=== PATIENT | male | born 1970 | race Caucasian/White ===

== ENCOUNTER 2018-03-30 22:23 | Inpatient (IN) | payer BC ==
[2018-03-30] MEDS ORDERED: ADENOSINE 3 MG/ML 2 ML VIAL IVP STA (23:03)
[2018-03-30 23:29] LABS: Basophils % (A) 1 %; Eosinophils # (A) 0.2 k/uL (0-0.7); Eosinophils % (A) 4 %; HCT 43.7 % (39.0-53.0); HGB 15.3 gm/dL (13.0-17.5); Lymphocytes # (A) 2.6 k/uL (1.0-4.8); Lymphocytes % (A) 42 %; MCH 31.4 pg (25.0-35.0); MCV 89.6 fL (80.0-100.0); Mean Platelet Volume 6.7; Monocytes # (A) 0.4 k/uL (0-1.0); Monocytes % (A) 7 %; Neutrophils # (A) 2.7 k/uL (1.3-7.7); Neutrophils % (A) 43 %; Platelet Count 254 k/uL (150-450); RBC 4.88 m/uL (4.30-5.90); RDW 12.6 % (11.5-15.5); WBC 6.3 k/uL (3.8-10.6)
[2018-03-30 23:36] LABS: Partial Thromboplastin Time 22.3 sec (22.0-30.0); Prothrombin Time 10.6 sec (9.0-12.0)
[2018-03-30 23:42] LABS: Albumin 4.6 g/dL (3.5-5.0); Calcium 9.7 mg/dL (8.4-10.2); Magnesium 2.1 mg/dL (1.6-2.3); Total Bilirubin 0.8 mg/dL (0.2-1.3); Total Protein 7.2 g/dL (6.3-8.2)
[2018-03-31 00:01] LABS: Creatine Kinase MB 1.4 ng/mL (0.0-2.4); Troponin I 0.013 ng/mL (0.000-0.034)
[2018-03-31] MEDS ORDERED: DILTIAZEM DRIP BOLUS FROM BAG 1 MG SOLN IV ONE ×2 (00:02→01:46)
--- NOTE | 2018-03-31 00:08 | XR ---
EXAM: XR Chest, 1 View CLINICAL HISTORY: Reason: dysrhythmia TECHNIQUE: Frontal view of the chest. COMPARISON: No relevant prior studies available. FINDINGS: Lungs: Unremarkable. No consolidation. Pleural space: Unremarkable. No pneumothorax. Heart: Unremarkable. No cardiomegaly. Mediastinum: Unremarkable. Bones/joints: Unremarkable. IMPRESSION: Normal chest x-ray.
[2018-03-31] MEDS: DILTIAZEM 125 MG in SODIUM CHLORIDE 0.9% 100 ML IV SCH ×2 (00:22→21:05)
[2018-03-31] MEDS ORDERED: NITROGLYCERIN SL TABS 0.4 MG TAB SUBLINGUAL PRN (02:08)
[2018-03-31] MEDS: SODIUM CHLORIDE 0.9% 1,000 ML IV SCH ×3 (02:12→22:30)
--- NOTE | 2018-03-31 02:13 | ED ---
Arrhythmia/Palpitations HPI - General Chief Complaint: Arrhythmia/Palpitations Stated Complaint: fast heart rate Time Seen by Provider: 03/30/18 22:53 Source: patient Mode of arrival: ambulatory Limitations: no limitations - History of Present Illness Initial Comments: This patient is a 47-year-old man with no cardiac history, who presents to be evaluated for racing and irregular heartbeat. 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 He states that he had not actually exerted himself at all. He did have a little bit of lightheadedness intermittently. The patient states that he is otherwise felt well. Patient denies chest pain, dyspnea, nausea or vomiting. MD Complaint: rapid heart beat, irregular heart beat Onset/Timin -: hour(s) Context: occurred during rest Associated Symptoms: near-syncope Treatments Prior to Arrival: vagal maneuvers - Related Data Home Medications Medication Instructions Recorded Confirmed Cholecalciferol [Vitamin D3] 1,000 unit PO DAILY 03/30/18 03/30/18 Allergies Allergy/AdvReac Type Severity Reaction Status Date / Time No Known Allergies Allergy Verified 03/30/18 22:58 Review of Systems ROS Statement: Those systems with pertinent positive or pertinent negative responses have been documented in the HPI. ROS Other: All systems not noted in ROS Statement are negative. Constitutional: Denies: fever, chills, weakness Respiratory: Denies: cough, dyspnea Cardiovascular: Reports: palpitations. Denies: chest pain, dyspnea on exertion , edema Gastrointestinal: Denies: abdominal pain, nausea, vomiting, diarrhea Genitourinary: Denies: dysuria Musculoskeletal: Denies: back pain Skin: Denies: rash Neurological: Denies: headache, weakness, numbness Past Medical History Past Medical History: No Reported History History of Any Multi-Drug Resistant Organisms: None Reported Past Surgical History: Hernia Repair Past Psychological History: No Psychological Hx Reported Smoking Status: Never smoker Past Alcohol Use History: Occasional Past Drug Use History: None Reported General Exam Limitations: no limitations General appearance: alert, in no apparent distress Head exam: Present: atraumatic, normocephalic Eye exam: Present: normal appearance. Absent: scleral icterus, conjunctival injection ENT exam: Present: normal oropharynx Neck exam: Present: normal inspection, full ROM Respiratory exam: Present: normal lung sounds bilaterally. Absent: respiratory distress, wheezes, rales, rhonchi, stridor Cardiovascular Exam: Present: tachycardia (Rate approximately 160 bpm), normal heart sounds. Absent: systolic murmur, diastolic murmur, rubs, gallop GI/Abdominal exam: Present: soft. Absent: distended, tenderness, guarding, rebound, rigid, mass Extremities exam: Present: normal inspection. Absent: pedal edema, calf tenderness Back exam: Present: normal inspection. Absent: CVA tenderness (R), CVA tenderness (L) Neurological exam: Present: alert Skin exam: Present: warm, dry, intact, normal color. Absent: rash Course Vital Signs 03/30/18 03/30/18 03/31/18 22:38 23:02 00:43 Temperature 97.9 F Pulse Rate 89 110 H Pulse Rate [ 178 H Senior Scrum Master ] Respiratory 18 20 Rate Blood Pressure 106/73 100/68 Blood Pressure [Left Arm] O2 Sat by Pulse 99 98 Oximetry 03/31/18 03/31/18 03/31/18 01:30 02:31 02:47 Temperature 97.7 F Pulse Rate 105 H 84 Pulse Rate [ 85 Senior Scrum Master ] Respiratory 18 20 20 Rate Blood Pressure 106/78 96/54 Blood Pressure 106/62 [Left Arm] O2 Sat by Pulse 98 100 Oximetry 03/31/18 03:20 Temperature 97.7 F Pulse Rate 84 Pulse Rate [ Senior Scrum Master ] Respiratory 20 Rate Blood Pressure 106/62 Blood Pressure [Left Arm] O2 Sat by Pulse 97 Oximetry EKG Findings - EKG Comments: EKG Findings:: SVT with rate approx 170s - EKG Results: EKG: interpreted by GEOFF, normal axis, normal QRS Medical Decision Making - Medical Decision Making Patient's 47-year-old man with a narrow complex tachycardia suspected to be SVT. We did attempt vagal maneuvers/ Valsalva which did not slow the patient's rate. Patient is given two rounds of adenosine , the first of which briefly slowed the rate before resuming the tachycardia approximately 170s. When this did not control the patient's rate Cardizem started which did bring the rate down to approximately 100 there were still some breakthroughs into the 160s however so patient be admitted for she'll cardiac enzymes and also cardiology consultation. - Lab Data Result diagrams: 03/31/18 04:49 03/31/18 04:49 Lab Results 03/30/18 03/30/18 03/30/18 Range/Units 22:58 22:58 22:58 WBC 6.3 (3.8-10.6) k/uL RBC 4.88 (4.30-5.90) m/uL Hgb 15.3 (13.0-17.5) gm/dL Hct 43.7 (39.0-53.0) % MCV 89.6 (80.0-100.0) fL MCH 31.4 (25.0-35.0) pg MCHC 35.0 (31.0-37.0) g/dL RDW 12.6 (11.5-15.5) % Plt Count 254 (150-450) k/uL Neutrophils % 43 % Lymphocytes % 42 % Monocytes % 7 % Eosinophils % 4 % Basophils % 1 % Neutrophils # 2.7 (1.3-7.7) k/uL Lymphocytes # 2.6 (1.0-4.8) k/uL Monocytes # 0.4 (0-1.0) k/uL Eosinophils # 0.2 (0-0.7) k/uL Basophils # 0.0 (0-0.2) k/uL PT (9.0-12.0) sec INR (<1.2) APTT (22.0-30.0) sec Sodium 143 (137-145) mmol/L Potassium 4.0 (3.5-5.1) mmol/L Chloride 107 (98-107) mmol/L Carbon Dioxide 27 (22-30) mmol/L Anion Gap 9 mmol/L BUN 20 (9-20) mg/dL Creatinine 1.57 H (0.66-1.25) mg/dL Est GFR (CKD-EPI)AfAm 60 (>60 ml/min/1.73 sqM) Est GFR (CKD-EPI)NonAf 52 (>60 ml/min/1.73 sqM) Glucose 90 (74-99) mg/dL Calcium 9.7 (8.4-10.2) mg/dL Magnesium 2.1 (1.6-2.3) mg/dL Total Bilirubin 0.8 (0.2-1.3) mg/dL AST 46 (17-59) U/L ALT 58 (21-72) U/L Alkaline Phosphatase 51 (38-126) U/L Total Creatine Kinase 263 H (55-170) U/L CK-MB (CK-2) 1.4 (0.0-2.4) ng/mL CK-MB (CK-2) Rel Index 0.5 Troponin I 0.013 (0.000-0.034) ng/mL Total Protein 7.2 (6.3-8.2) g/dL Albumin 4.6 (3.5-5.0) g/dL TSH 2.870 (0.465-4.680) mIU/L 03/30/18 Range/Units 22:58 WBC (3.8-10.6) k/uL RBC (4.30-5.90) m/uL Hgb (13.0-17.5) gm/dL Hct (39.0-53.0) % MCV (80.0-100.0) fL MCH (25.0-35.0) pg MCHC (31.0-37.0) g/dL RDW (11.5-15.5) % Plt Count (150-450) k/uL Neutrophils % % Lymphocytes % % Monocytes % % Eosinophils % % Basophils % % Neutrophils # (1.3-7.7) k/uL Lymphocytes # (1.0-4.8) k/uL Monocytes # (0-1.0) k/uL Eosinophils # (0-0.7) k/uL Basophils # (0-0.2) k/uL PT 10.6 (9.0-12.0) sec INR 1.0 (<1.2) APTT 22.3 (22.0-30.0) sec Sodium (137-145) mmol/L Potassium (3.5-5.1) mmol/L Chloride (98-107) mmol/L Carbon Dioxide (22-30) mmol/L Anion Gap mmol/L BUN (9-20) mg/dL Creatinine (0.66-1.25) mg/dL Est GFR (CKD-EPI)AfAm (>60 ml/min/1.73 sqM) Est GFR (CKD-EPI)NonAf (>60 ml/min/1.73 sqM) Glucose (74-99) mg/dL Calcium (8.4-10.2) mg/dL Magnesium (1.6-2.3) mg/dL Total Bilirubin (0.2-1.3) mg/dL AST (17-59) U/L ALT (21-72) U/L Alkaline Phosphatase (38-126) U/L Total Creatine Kinase (55-170) U/L CK-MB (CK-2) (0.0-2.4) ng/mL CK-MB (CK-2) Rel Index Troponin I (0.000-0.034) ng/mL Total Protein (6.3-8.2) g/dL Albumin (3.5-5.0) g/dL TSH (0.465-4.680) mIU/L Critical Care Time Critical Care Time: Yes (35 minutes) Disposition Clinical Impression: Supraventricular tachycardia, Acute kidney injury Disposition: ADMITTED IP TO THIS HOSP Condition: Fair Is patient prescribed a controlled substance at d/c from ED?: No
[2018-03-31 03:20] LABS: Glucose,Whole Blood 85 mg/dL (75-99)
[2018-03-31 03:24] VITALS: BMI 28.5
[2018-03-31 05:10] LABS: Basophils % (A) 1 %; Eosinophils # (A) 0.1 k/uL (0-0.7); Eosinophils % (A) 2 %; HCT 39.3 % (39.0-53.0); HGB 13.3 gm/dL (13.0-17.5); Lymphocytes # (A) 1.6 k/uL (1.0-4.8); Lymphocytes % (A) 24 %; MCH 30.7 pg (25.0-35.0); MCHC 33.8 g/dL (31.0-37.0); MCV 90.9 fL (80.0-100.0); Mean Platelet Volume 6.3; Monocytes # (A) 0.4 k/uL (0-1.0); Monocytes % (A) 6 %; Neutrophils # (A) 4.5 k/uL (1.3-7.7); Neutrophils % (A) 66 %; Platelet Count 201 k/uL (150-450); RBC 4.33 m/uL (4.30-5.90); RDW 12.8 % (11.5-15.5); WBC 6.9 k/uL (3.8-10.6)
[2018-03-31 05:27] LABS: Anion Gap 4 mmol/L; Blood Urea Nitrogen 17 mg/dL (9-20); Calcium 8.2 mg/dL (8.4-10.2); Carbon Dioxide 25 mmol/L (22-30); Chloride 111 mmol/L (98-107); Glucose 89 mg/dL (74-99); Magnesium 1.9 mg/dL (1.6-2.3); Phosphorus 4.3 mg/dL (2.5-4.5); Potassium 4.3 mmol/L (3.5-5.1); Sodium 140 mmol/L (137-145)
[2018-03-31 05:43] LABS: Creatine Kinase MB 1.1 ng/mL (0.0-2.4); Troponin I 0.026 ng/mL (0.000-0.034)
--- NOTE | 2018-03-31 06:03 | P.HPIM ---
History of Present Illness H&P Date: 03/31/18 Patient is a 47-year-old male with no significant PMH who presented to the ED for palpitations that started suddenly at 3 PM yesterday. Palpitations were associated with some shortness of breath though the patient denied chest pain, dizziness, diaphoresis, nausea, or vomiting. Palpitations were constant and had no alleviating or exacerbating factors. The patient also denied fever, chills, cough, recent travel, sick contacts, abdominal pain, diarrhea, constipation, weakness, or numbness. The patient notes he's never had palpitations in the past and exercises on a regular basis. In the in the emergency room, the patient underwent a comprehensive workup, with troponin 0.013, chest x-ray unremarkable, EKG showing SVT at 177 bpm, BUN 20, and creatinine 1.57. The patient was given adenosine 12 mg IV push and was subsequently started on Cardizem drip after which he reverted to sinus at normal rate. He is being admitted to the medicine service for SVT and cardiology evaluation. Review of Systems Pertinent positives and negatives as discussed in HPI, a complete review of systems was performed and all other systems are negative. Past Medical History Past Medical History: No Reported History History of Any Multi-Drug Resistant Organisms: None Reported Past Surgical History: Hernia Repair Past Psychological History: No Psychological Hx Reported Smoking Status: Never smoker Past Alcohol Use History: Occasional Past Drug Use History: None Reported Medications and Allergies Home Medications Medication Instructions Recorded Confirmed Type Cholecalciferol [Vitamin D3] 1,000 unit PO DAILY 03/30/18 03/30/18 History Allergies Allergy/AdvReac Type Severity Reaction Status Date / Time No Known Allergies Allergy Verified 03/30/18 22:58 Physical Exam Vitals: Vital Signs Temp Pulse Pulse Resp BP BP Pulse Ox 03/31/18 04:25 97 03/31/18 04:10 85 20 97/65 95 03/31/18 04:00 85 16 97/65 95 03/31/18 03:50 84 16 106/62 98 03/31/18 03:40 84 20 106/62 97 03/31/18 03:20 97.7 F 84 20 106/62 97 03/31/18 02:47 84 20 96/54 100 03/31/18 02:31 97.7 F 85 20 106/62 03/31/18 01:30 105 H 18 106/78 98 03/31/18 00:43 110 H 20 100/68 98 03/30/18 23:02 178 H 03/30/18 22:38 97.9 F 89 18 106/73 99 Intake and Output 03/30/18 03/30/18 03/31/18 14:59 22:59 06:59 Intake Total 25 Balance 25 Intake: IV 25 Diltiazem 125 mg In 5 Sodium Chloride 0.9% 100 ml @ 5 MG/HR 5 mls/hr IV .Q24H [facility] Rx#:[id number] Sodium Chloride 0.9% 1, 20 000 ml @ 100 mls/hr IV . Q10H [facility] Rx#:[id number] Other: Weight 81.647 kg General: non toxic, no distress, appears at stated age, normal weight Derm: no unusual rashes/lesions no unusual ecchymoses, warm, dry Head: atraumatic, normocephalic, symmetric Eyes: EOMI, no lid lag, anicteric sclera, pupils equal round reactive to light ENT: Nose and ears atraumatic, no thrush, no pharyngeal erythema Neck: No thyromegaly, no cervical lymphadenopathy, trachea midline, supple Mouth: no lip lesion, mucus membranes moist Cardiovascular: S1S2 reg, tachycardic, no murmur, positive posterior tibial pulse bilateral, no edema, capillary refill less than 2 seconds Lungs: CTA bilateral, no rhonchi, no rales , no accessory muscle use Abdominal: soft, nontender to palpation, no guarding, no appreciable organomegaly, normal bowel sounds Ext: no gross muscle atrophy, muscle strength 5 out of 5 in all 4 extremities grossly, no contractures, Neuro: CN II-XI grossly intact, light touch intact all 4 extremities, finger to nose within normal limits, Psych: Alert, oriented, appropriate affect Results CBC & Chem 7: 03/31/18 04:49 03/31/18 04:49 Labs: Abnormal Lab Results - Last 24 Hours (Table) 03/30/18 03/30/18 03/31/18 Range/Units 22:58 22:58 04:49 Chloride (98-107) mmol/L Creatinine 1.57 H (0.66-1.25) mg/dL Calcium (8.4-10.2) mg/dL Total Creatine Kinase 263 H 211 H (55-170) U/L 03/31/18 Range/Units 04:49 Chloride 111 H (98-107) mmol/L Creatinine (0.66-1.25) mg/dL Calcium 8.2 L (8.4-10.2) mg/dL Total Creatine Kinase (55-170) U/L Thrombosis Risk Factor Assmnt - Choose All That Apply Any of the Below Risk Factors Present?: No Other Risk Factors: No Thrombosis Risk Factor Assessment Level: Very Low Risk Assessment and Plan Plan: Supraventricular tachycardia, hemodynamically stable -Continue with the Cardizem infusion -Cardiac monitoring -Cardiology consult -Trend troponin -Echocardiogram Kidney injury, unspecified -Monitor BMP -Continue with normal saline infusion 100 mL/h DVT//GI prophylaxis -Heparin -No indication for GI prophylaxis The patient is admitted with an anticipated greater than 2 midnight stay for evaluation of SVT. CODE STATUS: Full code Discussed with: Patient Anticipated discharge date: 04/02/[address]: Home A total of 45 minutes was spent on the care of this complex patient more than 50 % of the time was spent in counseling and care coordination.
[2018-03-31] MEDS: MAGNESIUM SULFATE-D5W PMX 1 GM in DEXTROSE/WATER 1 100ML.BAG IVPB SCH ×3 (06:20→08:41)
[2018-03-31] MEDS: HEPARIN SODIUM,PORCINE 5,000 UNIT/ML 1 ML VIAL SQ SCH ×3 (08:48→23:24)
[2018-03-31] MEDS: METOPROLOL TARTRATE 25 MG TAB PO SCH ×2 (08:50→20:35)
--- NOTE | 2018-03-31 11:48 | CONS ---
CONSULTATION Mr. Cortés is 47-year-old male with no prior cardiac history, who presented to the emergency room with sudden onset of palpitations associated with mild dyspnea and dizziness. He was noted to be in supraventricular tachycardia with rapid ventricular response. At time of the examination, he is having episode of short bursts of SVT. Prior to this, patient has no prior history of cardiac disease. He is active physically without any symptoms. Denies any exertional chest pain. He denies any dizziness palpitation. He has no PND, orthopnea, or peripheral edema. He has no prior history of cardiac disease or cardiac medication. He has no history of PND, orthopnea, or peripheral edema. His coronary risk factor is negative for hypertension, hyperlipidemia, or diabetes. He is a nonsmoker. MEDICATION: His medication at home includes vitamin D. REVIEW OF SYSTEMS: RESPIRATORY SYSTEM: No documented history of asthma, emphysema or bronchitis. GI SYSTEM: No recent GI bleed. No peptic ulcer disease. SYSTEM: No dysuria or hematuria. NERVOUS SYSTEM: No stroke or seizure. SOCIAL HISTORY: He has social alcohol intake and he does not drink a lot of caffeine. PHYSICAL EXAMINATION: He is a 47-year-old male, alert, oriented, in no apparent distress. Blood pressure 96/60 with a heart rate in the 80s. HEAD: Normocephalic. EYES: Sclerae nonicteric. NECK: Good upstroke, no bruit, no jugular venous distention. LUNGS: Clear to auscultation. HEART: Regular rate and rhythm, S1, S2. No S3. No rub or gallop. ABDOMEN: Soft, nontender. Positive bowel sounds, no organomegaly. EXTREMITIES: No edema, intact pulses. LAB DATA: Revealed BUN and creatinine of 17 and 1.12 on presentation, 21 and 1.57. Troponin 0.013 and 0.026. TSH of 2.8, hemoglobin of 13.3. Initial EKG revealed a supraventricular tachycardia, rate of [address]-T wave changes. Subsequently, he is in sinus mechanism with right axis deviation and no acute changes. His chest x-ray shows no acute infiltrate. IMPRESSION: Supraventricular tachycardia, AV estefanía reentry tachycardia. RECOMMENDATION: I will add a beta siria to his regimen. If his pressure is stable, I will stop the IV Cardizem. Will obtain echocardiogram and Doppler. If he remains stable, I would expect he should be able to be discharged home soon and followed as an outpatient and if he has any recurrence, then will consider ablation. ANUP / VENKATESH: [id number] /
[2018-03-31 12:02] LABS: Troponin I 0.015 ng/mL (0.000-0.034)
--- NOTE | 2018-03-31 12:32 | ECHOF ---
Referral Reason:arrhythmia MEASUREMENTS -------- HEIGHT: 177.8 cm WEIGHT: 81.7 kg BP: 96/67 RVIDd: 3.4 cm (< 3.3) IVSd: 1.3 cm (0.6 - 1.1) LVIDd: 4.3 cm (3.9 - 5.3) LVPWd: 1.4 cm (0.6 - 1.1) IVSs: 1.6 cm LVIDs: 3.8 cm LVPWs: 1.6 cm LA Diam: 3.3 cm (2.7 - 3.8) LAESV Index (A-L): 35.24 ml/m Ao Diam: 3.5 cm (2.0 - 3.7) AV Cusp: 2.6 cm (1.5 - 2.6) MV EXCURSION: 23.991 mm (> 18.000) MV EF SLOPE: 139 mm/s (70 - 150) EPSS: 0.5 cm MV E Harpal: 0.85 m/s MV DecT: 181 ms MV A Harpal: 0.86 m/s MV E/A Ratio: 0.98 RAP: 5.00 mmHg RVSP: 31.23 mmHg FINDINGS -------- Sinus rhythm with extra systolic beats. This was a technically good study. The left ventricular size is normal. There is moderate concentric left ventricular hypertrophy. O verall left ventricular systolic function is low-normal with, an EF between 50 - 55 %. The right ventricle is mildly enlarged. LA is moderately dilated 34-39 ml/m2 The right atrium is normal in size. The aortic valve is trileaflet and appears structurally normal. There is trace mitral regurgitation. Mild tricuspid regurgitation present. Right ventricular systolic pressure is normal at < 35 mmHg. Trace/mild (physiologic) pulmonic regurgitation. The aortic root size is normal. Normal inferior vena cava with normal inspiratory collapse consistent with estimated right atrial pre ssure of 5 mmHg. There is no pericardial effusion. CONCLUSIONS -------- 1. Sinus rhythm with extra systolic beats. 2. This was a technically good study. 3. The left ventricular size is normal. 4. There is moderate concentric left ventricular hypertrophy. 5. The right ventricle is mildly enlarged. 6. LA is moderately dilated 34-39 ml/m2 7. The right atrium is normal in size. 8. The aortic valve is trileaflet and appears structurally normal. 9. There is trace mitral regurgitation. 10. Mild tricuspid regurgitation present. 11. Right ventricular systolic pressure is normal at < 35 mmHg. 12. Trace/mild (physiologic) pulmonic regurgitation. 13. The aortic root size is normal. 14. Normal inferior vena cava with normal inspiratory collapse consistent with estimated right atrial pressure of 5 mmHg. 15. There is no pericardial effusion. LEAD ATHLETE: Yamileth Augustine RDCS
--- NOTE | 2018-03-31 15:29 | P.PN ---
Progress Note - Text Progress Note Date: 03/31/18 (delayed charting patient seen at 0845) Patient recently seen by Dr. Greer for H and P. Patient can still feel intermittent heart palpitations not associated with chest pain, shortness of breath, light headedness or dizziness. General: non toxic, no distress, appears at stated age Derm: warm, dry Head: atraumatic, normocephalic, symmetric Eyes: EOMI, no lid lag, anicteric sclera Mouth: no lip lesion, mucus membranes moist Cardiovascular: S1S2 irreg, no murmur, positive posterior tibial pulse bilateral , Lungs: CTA bilateral, no rhonchi, no rales , no accessory muscle use Abdominal: soft, non tender to palpation, no guarding, no appreciable organomegaly Ext: no gross muscle atrophy, no edema, no contractures Neuro: CN II-XI grossly intact, no focal neuro deficits Psych: Alert, oriented, appropriate affect Still on cardizem gtt. Echo with preserved EF. For full Assessment and plan see H and P by Dr. Greer.
[2018-04-01 00:51] LABS: Cholesterol 167 mg/dL (<200); HDL Cholesterol 64 mg/dL (40-60); LDL Cholesterol,Calculated 86 mg/dL (0-99); Triglycerides 87 mg/dL (<150)
[2018-04-01] MEDS ORDERED: DILTIAZEM DRIP BOLUS FROM BAG 1 MG SOLN IV ONE (07:11)
[2018-04-01] MEDS ORDERED: ADENOSINE 3 MG/ML 2 ML VIAL IVP STA ×2 (07:13→07:15)
[2018-04-01] MEDS ORDERED: DILTIAZEM 125 MG in SODIUM CHLORIDE 0.9% 100 ML IV SCH (07:15)
[2018-04-01] MEDS ORDERED: PROPAFENONE 150 MG TAB PO STA (07:59)
[2018-04-01] MEDS: HEPARIN SODIUM,PORCINE 5,000 UNIT/ML 1 ML VIAL SQ SCH ×3 (08:10→23:59)
[2018-04-01] MEDS: ASPIRIN 81 MG PO SCH (08:11)
[2018-04-01] MEDS: SODIUM CHLORIDE 0.9% 1,000 ML IV SCH ×2 (08:16→21:05)
[2018-04-01] MEDS ORDERED: ASPIRIN 325 MG TAB PO SCH (09:00)
--- NOTE | 2018-04-01 12:17 | P.PN ---
Subjective Progress Note Date: 04/01/18 Principal diagnosis: SVT Patient is a 47-year-old male no significant past medical history who presented to the emergency department for palpitations. In the ER he underwent an extensive evaluation. Initial EKG showed SVT. He was given 2 doses of adenosine which slowed his heart rate immediately went back up. He was therefore started on a Cardizem drip. Initial troponin was negative, chest x- ray unremarkable, and electrolytes were within normal limits. He was admitted for further evaluation by cardiology. On 03/31 he was trying just been off the Cardizem drip and onto oral metoprolol. On the morning of 04/01 he again went into SVT. He received 2 rounds of adenosine that he is in atrial flutter. He was therefore started on a Cardizem drip. Cardiology dosed him with ruthmol and he converted to sinus rhythm in the Cardizem drip was discontinued. Patient seen and examined at bedside. He states he feels heart racing this morning during his episodes of SVT. He denies any shortness of breath, chest pain, or lightheadedness associated with it. He stated that when he converted to sinus rhythm he started having a foggy feeling. He reports that he has had a headache for the last 2 days. No other complaints currently. Objective - Vital Signs Vital signs: Vital Signs Temp 98.2 F 04/01/18 08:16 Pulse 136 H 04/01/18 08:16 Resp 20 04/01/18 08:16 BP 134/66 04/01/18 08:16 Pulse Ox 97 04/01/18 08:16 Intake & Output 03/31/18 04/01/18 04/01/18 18:59 06:59 18:59 Intake Total 1040 353.583 120 Balance 1040 353.583 120 Weight 84.2 kg Intake: IV 840 Diltiazem 125 mg In 40 Sodium Chloride 0.9% 100 ml @ 5 MG/HR 5 mls/hr IV .Q24H [facility] Rx#:[id number] Sodium Chloride 0.9% 1, 800 000 ml @ 100 mls/hr IV . Q10H [facility] Rx#:[id number] Intake, IV Titration 200 103.583 Amount Diltiazem 125 mg In 103.583 Sodium Chloride 0.9% 100 ml @ 5 MG/HR 5 mls/hr IV .Q24H [facility] Rx#:[id number] Magnesium Sulfate-D5w Pmx 200 1 gm In Dextrose/Water 1 100ml.bag @ 100 mls/hr IVPB Q1H [facility] Rx#: [id number] Oral 250 120 Other: # Voids 4 1 - Exam General: non toxic, no distress, appears at stated age Derm: warm, dry Cardiovascular: S1S2 reg, no murmur, positive posterior tibial pulse bilateral, Lungs: CTA bilateral, no rhonchi, no rales , no accessory muscle use Abdominal: soft, nontender to palpation, no guarding, no appreciable organomegaly Ext: no gross muscle atrophy, no edema, no contractures Neuro: CN II-XI grossly intact, no focal neuro deficits Psych: Alert, oriented, appropriate affect - Labs CBC & Chem 7: 03/31/18 04:49 03/31/18 04:49 Labs: Abnormal Lab Results - Last 24 Hours (Table) 03/30/18 Range/Units 22:58 HDL Cholesterol 64 H (40-60) mg/dL Assessment and Plan Assessment: SVT -Cardiology recommendations -Received dose of propranolol, metoprolol -Echocardiogram shows moderate concentric LVH with preserved ejection fraction of 50-55% -Telemetry - ASA ARNOLDO, resolved DVT prophylaxis: Heparin Discussed with: Patient, family Anticipated discharge: 24-[address]: home A total of [25] minutes was spent on the care of this complex patient more than 50% of the time was spent in counseling and care coordination.
--- NOTE | 2018-04-01 12:33 | P.PN ---
Subjective Progress Note Date: 04/01/18 This 47-year-old gentleman who initially presented to the emergency room with symptoms of sudden onset of palpitations with associated dizziness and shortness of breath. EKG initially showed what appeared to be a supraventricular tachycardia. He was given adenosine with no effect, and initiated on Cardizem. This morning his heart rate was noted to be up in the 160-170 range. At times the heart rate went down to the 1 teens, was performed at that time showed atrial flutter with rapid ventricular response. Echocardiogram with Doppler study was performed which revealed a normal left ventricular systolic function. We gave the patient 600 mg dose of Rythmol, subsequent to that he did convert to normal sinus rhythm. At the time of my examination, he states he overall feels significantly better. No further palpitations in breathing is stable. Magnesium level today 2.0. Objective - Vital Signs Vital signs: Vital Signs Temp 98.1 F 04/01/18 12:11 Pulse 83 04/01/18 12:11 Resp 20 04/01/18 12:11 BP 107/69 04/01/18 12:11 Pulse Ox 97 04/01/18 12:11 Intake & Output 03/31/18 04/01/18 04/01/18 18:59 06:59 18:59 Intake Total 1040 353.583 120 Balance 1040 353.583 120 Weight 84.2 kg Intake: IV 840 Diltiazem 125 mg In 40 Sodium Chloride 0.9% 100 ml @ 5 MG/HR 5 mls/hr IV .Q24H [facility] Rx#:[id number] Sodium Chloride 0.9% 1, 800 000 ml @ 100 mls/hr IV . Q10H [facility] Rx#:[id number] Intake, IV Titration 200 103.583 Amount Diltiazem 125 mg In 103.583 Sodium Chloride 0.9% 100 ml @ 5 MG/HR 5 mls/hr IV .Q24H [facility] Rx#:[id number] Magnesium Sulfate-D5w Pmx 200 1 gm In Dextrose/Water 1 100ml.bag @ 100 mls/hr IVPB Q1H [facility] Rx#: [id number] Oral 250 120 Other: # Voids 4 1 - Exam PHYSICAL EXAMINATION: GENERAL: 37-year-old gentleman in no acute distress at the time of my examination HEENT: Head is atraumatic, normocephalic. Pupils equal, round. Sclera anicteric. Conjunctiva are clear. Mucous membranes of the mouth are moist. Neck is supple. There is no elevated jugular venous pressure. No carotid bruit is heard. HEART EXAMINATION: Heart S1, S2 normal. No murmur or gallop heard. CHEST EXAMINATION: Lungs are clear to auscultation and precussion. No chest wall tenderness is noted on palpation or with deep breathing. ABDOMEN: Soft, nontender. Bowel sounds are heard. No organomegaly noted. EXTREMITIES: 2+ peripheral pulses with no evidence of peripheral edema and no calf tenderness noted. NEUROLOGIC patient is awake, alert and oriented 3 . . - Labs CBC & Chem 7: 03/31/18 04:49 03/31/18 04:49 Labs: Abnormal Lab Results - Last 24 Hours (Table) 03/30/18 Range/Units 22:58 HDL Cholesterol 64 H (40-60) mg/dL Assessment and Plan Plan: Assessment and plan #1 atrial flutter with rapid ventricular response, atypical, currently in normal sinus rhythm Plan Patient was given a 600 mg dose of Rythmol, has since converted to normal sinus rhythm and remains at this time in a normal sinus rhythm. We will start the patient on a regular dose of Rythmol to be taken at home 3 times a day. Continue to monitor the patient for another 24 hours. DNP note has been reviewed, I agree with a documented findings and plan of care. Patient was seen and examined.
[2018-04-01] MEDS: METOPROLOL TARTRATE 25 MG TAB PO SCH (16:15)
[2018-04-02] MEDS: SODIUM CHLORIDE 0.9% 1,000 ML IV SCH ×2 (04:15→08:45)
[2018-04-02] MEDS: METOPROLOL TARTRATE 25 MG TAB PO SCH ×2 (06:27→08:45)
[2018-04-02] MEDS: PROPAFENONE 150 MG TAB PO SCH ×2 (08:45→16:46)
[2018-04-02] MEDS: HEPARIN SODIUM,PORCINE 5,000 UNIT/ML 1 ML VIAL SQ SCH ×2 (08:45→16:46)
[2018-04-02] MEDS: ASPIRIN 81 MG PO SCH (08:45)
[2018-04-02 09:34] VITALS: RESP 18
[2018-04-02 17:04] VITALS: BP 112/68; PULSE 75; TEMP 97.6
--- NOTE | 2018-04-02 17:53 | P.DS ---
Providers Date of admission: 03/31/18 02:10 Expected date of discharge: 04/02/18 Attending physician: Valentin Greer MD Consults: 03/31/18 02:08 Consult Physician Routine Consulting Provider: Austen Perera Consult Reason/Comments: SVT Do you want consulting provider notified?: Yes Primary care physician: Stated None Hospital Course: Discharge Diagnosis: SVT Atrial flutter with RVR, atypical [facility] Hospital Course: Patient is a 47-year-old male no significant past medical history who presented to the emergency department for palpitations. In the ER he underwent an extensive evaluation. Initial EKG showed SVT. He was given 2 doses of adenosine which slowed his heart rate immediately went back up. He was therefore started on a Cardizem drip. Initial troponin was negative, chest x- ray unremarkable, and electrolytes were within normal limits. He was admitted for further evaluation by cardiology. On 03/31 he was weaned off the Cardizem drip and onto oral metoprolol. On the morning of 04/01 he again went into SVT. He received 2 rounds of adenosine then he was noted to be in atrial flutter. He was therefore started on a Cardizem drip. Cardiology dosed him with rythmol and he converted to sinus rhythm in the Cardizem drip was discontinued. He maintained sinus rhythm for 24 hours and was able to ambulate in the hallways without elevated heart rate. He was determined stable for discharge home. He will need to establish with a PCP and Radha Rusesll was suggested. He will follow with Dr. Walden of for further care. Patient seen and examined at bedside. No chest pain, shortness of breath, palpitations Vital signs reviewed and stable. General: non toxic, no distress, appears at stated age Derm: warm, dry Head: atraumatic, normocephalic, symmetric Eyes: EOMI, no lid lag, anicteric sclera Mouth: no lip lesion, mucus membranes moist Cardiovascular: S1S2 reg, no murmur, positive posterior tibial pulse bilateral, Lungs: CTA bilateral, no rhonchi, no rales , no accessory muscle use Abdominal: soft, nontender to palpation, no guarding, no appreciable organomegaly Ext: no gross muscle atrophy, no edema, no contractures Neuro: CN II-XI grossly intact, no focal neuro deficits Psych: Alert, oriented, appropriate affect A total of 37 minutes of time were spent preparing this complex discharge summary . Pertinent Studies: Echo- Ef 50-55%, moderate LVH Patient Condition at Discharge: Stable Plan - Discharge Summary New Discharge Prescriptions: New Aspirin 81 mg PO DAILY #0 chew Metoprolol Tartrate [Lopressor] 25 mg PO BID #60 tab Propafenone [Rythmol] 150 mg PO Q8HR #90 tab Continue Cholecalciferol [Vitamin D3] 1,000 unit PO DAILY Discharge Medication List Cholecalciferol [Vitamin D3] 1,000 unit PO DAILY 03/30/18 [History] Aspirin 81 mg PO DAILY #0 chew 04/02/18 [Rx] Metoprolol Tartrate [Lopressor] 25 mg PO BID #60 tab 04/02/18 [Rx] Propafenone [Rythmol] 150 mg PO Q8HR #90 tab 04/02/18 [Rx] Follow up Appointment(s)/Referral(s): Lei Walden MD [STAFF PHYSICIAN] - 1 Week Radha Jones NPC [Nurse Practitioner] - 1 Week None,Stated [Primary Care Provider] - 1-2 days Activity/Diet/Wound Care/Special Instructions: heart healthy diet activity as tolerated Discharge Disposition: HOME SELF-CARE
--- NOTE | 2018-04-03 16:20 | P.PN ---
Subjective Progress Note Date: 04/02/18 This 47-year-old gentleman who initially presented to the emergency room with symptoms of sudden onset of palpitations with associated dizziness and shortness of breath. EKG initially showed what appeared to be a supraventricular tachycardia. He was given adenosine with no effect, and initiated on Cardizem. This morning his heart rate was noted to be up in the 160-170 range. At times the heart rate went down to the 1 teens, was performed at that time showed atrial flutter with rapid ventricular response. Echocardiogram with Doppler study was performed which revealed a normal left ventricular systolic function. We gave the patient 600 mg dose of Rythmol, subsequent to that he did convert to normal sinus rhythm. At the time of my examination, he states he overall feels significantly better. No further palpitations in breathing is stable. Magnesium level today 2.0. 01/30/2019 Patient was seen and examined today, overall feeling much better. Continues to be in normal sinus rhythm. He may be able to be discharged home today on Rythmol 150 mg 3 times a day along with metoprolol 25 mg twice a day and Eliquis. Follow-up appointment in the office post discharge. Objective - Vital Signs Vital signs: Vital Signs Temp 97.6 F 04/02/18 16:00 Pulse 75 04/02/18 16:00 Resp 18 04/02/18 16:00 BP 112/68 04/02/18 16:00 Pulse Ox 96 04/02/18 16:00 Intake & Output 04/02/18 04/03/18 04/03/18 18:59 06:59 18:59 Intake Total 320 Balance 320 Intake: Oral 320 Other: # Voids 3 - Exam PHYSICAL EXAMINATION: GENERAL: 37-year-old gentleman in no acute distress at the time of my examination HEENT: Head is atraumatic, normocephalic. Pupils equal, round. Sclera anicteric. Conjunctiva are clear. Mucous membranes of the mouth are moist. Neck is supple. There is no elevated jugular venous pressure. No carotid bruit is heard. HEART EXAMINATION: Heart S1, S2 normal. No murmur or gallop heard. CHEST EXAMINATION: Lungs are clear to auscultation and precussion. No chest wall tenderness is noted on palpation or with deep breathing. ABDOMEN: Soft, nontender. Bowel sounds are heard. No organomegaly noted. EXTREMITIES: 2+ peripheral pulses with no evidence of peripheral edema and no calf tenderness noted. NEUROLOGIC patient is awake, alert and oriented 3 . . - Labs CBC & Chem 7: 03/31/18 04:49 03/31/18 04:49 Assessment and Plan Plan: Assessment and plan #1 atrial flutter with rapid ventricular response, atypical, currently in normal sinus rhythm Plan Patient remains in normal sinus rhythm, he may be able to be discharged home today from our perspective, we'll discharge him home on 150 of Rythmol 3 times a day along with metoprolol 25 twice a day and Eliquis 5 mg twice a day. Follow -up appointment in the office. DNP note has been reviewed, I agree with a documented findings and plan of care. Patient was seen and examined.
== END 2018-04-02 18:40 | disposition home or self-care (01) | DRG 309 ==
LOC: EC 22:23 → 2SICU 03-31 02:10 → 3SCARD 03-31 22:00
PROVIDERS: ADMIT Internal Medicine; ATTEND Internal Medicine
DX: I47.1 Supraventricular tachycardia (principal); N17.9 Acute kidney failure, unspecified; I48.4 Atypical atrial flutter
CPT/HCPCS: 36415; 71045; 80048; 80053; 80061; 82550; 82553; 83735; 84100; 84443; 84484; 85025; 85610; 85730; 93005; 93306; 96365; 96366; 96375; 96376; 99291